=== PATIENT | male | born 1965 | race Caucasian/White ===

== ENCOUNTER 2016-10-09 09:54 | Emergency (ER) | payer MEDICARE, OTHER ==
--- NOTE | 2016-10-09 10:20 | Emergency Department Record ---
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 He had a revision September 04. He states it has taken longer to heal. He has more pain and tenderness than prior surgeries. He continues to have a small amount of clear-yellow drainage. No fevers. He feels shaky. No streaking. No pus. His surgery was in [place]. He saw his PCP for labs and antibiotics about a week ago. The patient started Keflex on 10/01 and had cultures and labs drawn on 10/05 in the ED. MD Complaint: Extremity swelling, Joint pain Onset/Timin -: Week(s) Location: Left, Other History of Same: No -: Yes Arthralgia Severity scale (1-10): 7 Quality: Aching, Other Consistency: Constant Improves with: Nothing Worsens with: Nothing Associated Symptoms: Denies other symptoms - Related Data Previous Rx's Medication Instructions Recorded Clindamycin HCl [Cleocin HCl] 300 mg PO QID #40 capsule 10/09/16 Allergies Allergy/AdvReac Type Severity Reaction Status Date / Time Sulfa (Sulfonamide Allergy RASH Verified 10/09/16 10:03 Antibiotics) Travel Screening - Travel/Exposure Within Last 30 Days Have you traveled within the last 30 days?: No - Travel/Exposure Within Last Year Have you traveled outside the [place] in the last year?: No - Additonal Travel Details Have you been exposed to anyone with a communicable illness?: No - Travel Symptoms Symptom Screening: None Review of Systems Constitutional: Reports: Chills. Denies: Fever, Malaise, Night sweats, Weakness Eyes: Denies: Eye discharge ENT: Denies: Congestion Respiratory: Denies: Cough, Dyspnea, Hemoptysis, Stridor, Wheezes Cardiovascular: Denies: Chest pain, Palpitations, Syncope Endocrine: Denies: Fatigue Gastrointestinal: Denies: Abdominal pain, Diarrhea, Nausea, Vomiting Genitourinary: Denies: Dysuria, Frequency, Hematuria Musculoskeletal: Reports: Arthralgia. Denies: Back pain, Myalgia Skin: Denies: Bruising, Change in color Neurological: Denies: Headache Psychiatric: Denies: Anxiety Hematological/Lymphatic: Denies: Blood Clots, Easy bleeding, Easy bruising, Swollen glands Past Medical History - SOCIAL HISTORY Smoking Status: Never smoker Alcohol Use: None Drug Use: None - RESPIRATORY Hx Respiratory Disorders: No - CARDIOVASCULAR Hx Cardio Disorders: Yes Hx Hypertension: Yes - NEURO Hx Neuro Disorders: Yes Hx Neuropathy: Yes - GI Hx GI Disorders: No - Hx Genitourinary Disorders: No - ENDOCRINE Hx Endocrine Disorders: No - MUSCULOSKELETAL Hx Musculoskeletal Disorders: No - PSYCH Hx Psych Problems: No - HEMATOLOGY/ONCOLOGY Hx Hematology/Oncology Disorders: No Family Medical History Any Significant Family History?: No Physical Exam - General General Appearance: Alert, Oriented x3, Cooperative, No acute distress Limitations: No limitations - Head Head exam: Normal inspection - Eye Eye exam: Normal appearance, PERRL. negative: Conjunctival injection, Periorbital swelling - ENT ENT exam: Normal exam Ear exam: Normal external inspection Nasal Exam: Normal inspection Mouth exam: Normal external inspection Teeth exam: Normal inspection Throat exam: Normal inspection - Neck Neck exam: Normal inspection - Respiratory Respiratory exam: Normal lung sounds bilaterally. negative: Respiratory distress - Cardiovascular Cardiovascular Exam: Regular rate, Normal rhythm, Normal heart sounds - Rectal Rectal exam: Deferred - exam: Deferred - Extremities Extremities exam: Full ROM, Other (The amputation site appears mildly erythematous diffusely at the end, incision site is intact, clear to yellow drainage on the guaze, tender diffusely across the end, no boggy, no pus). negative: Normal inspection, Pedal edema - Neurological Neurological exam: Alert, Oriented X3 - Psychiatric Psychiatric exam: Normal affect, Normal mood - Skin Skin exam: Erythema Course Vital Signs 10/09/16 09:59 Temperature 98.1 F Pulse Rate 100 H Respiratory 18 Rate Blood Pressure 134/87 Pulse Ox 96 - Reevaluation(s) Reevaluation #1: XR was read as post op changes no acute changes WBC 10 CRP 2.7 ESR 2 Results were discussed with the patient Will attempt to get ahold of his orthopedist in [place] 10/09/16 11:45 Message left No response by his orthopedist Will change to Clindamycin given the minor findings He is to call his orthopedist tomorrow Blood cultures no growth to date The findings are very mild The patient is in agreement and will call his doctor tomorrow 10/09/16 12:14 10/09/16 12:19 Reevaluation #2: The patient's orthopedist has not called back yet The patient will call in the morning to discuss his symptoms with the orthopedist His findings are mild. No sign of abscess or osteo. He was instructed to return if worse or any new concerns 10/09/16 18:18 Medical Decision Making - Lab Data Result diagrams: 10/09/16 10:30 10/09/16 10:30 Disposition Disposition: Discharge Clinical Impression: Cellulitis Disposition: Home, Self-Care Condition: (1) Good Instructions: Cellulitis (ED) Additional Instructions: Call your orthopedist tomorrow for close follow up Return to the ED if you have fever, swelling or spreading redness Start the clindamycin 4 times daily Prescriptions: Clindamycin HCl [Cleocin HCl] 300 mg PO QID #40 capsule Forms: Patient Portal Access
[2016-10-09 10:47] LABS: HEMATOCRIT 43.8 % (42.0-52.0); HEMOGLOBIN 15.5 gm/dl (14.0-18.0); MEAN CORPUSCULAR HEMOGLOBIN 31.1 pg (27-33); MEAN CORPUSCULAR HGB CONC 35.4 g/dl (32-36); MEAN PLATELET VOLUME 9.5 fl (7.4-10.4); PLATELET COUNT 297 K/uL (130-400); RED BLOOD COUNT 4.98 M/uL (4.40-5.70); RED CELL DISTRIBUTION WIDTH 13.3 % (11.5-14.5)
[2016-10-09 11:00] LABS: ANION GAP 9.1 (7-16); BLOOD UREA NITROGEN 12 mg/dL (9-20); C-REACTIVE PROTEIN 2.7 mg/dL (0.0-0.9); CARBON DIOXIDE 25.9 mmol/L (22-30); CREATININE 0.9 mg/dL (0.66-1.25); EST GLOMERULAR FILTRATION RATE > 60 ml/min; GLUCOSE,RANDOM 118 mg/dL (70-110)
[2016-10-09 11:03] LABS: PLATELET ESTIMATE NORMAL (NORMAL)
[2016-10-09 11:20] LABS: ERYTHROCYTE SEDIMENTATION RATE 2 mm/hr (0-15)
[2016-10-09] MEDS: CLINDAMYCIN 600MG/50ML PREMIX 600 MG in DEXTROSE 1 BAG IV ONE (12:23)
--- NOTE | 2016-10-12 15:08 | RADIOLOGY REPORT ---
DATE: 10/09/2016. EXAM: LEFT KNEE. HISTORY: Surgery four weeks ago. Distal stump pain increased since surgery. TECHNIQUE: Three views of the left knee were obtained. COMPARISON: None. ENCOUNTER: Initial. FINDINGS: There has been a left [id number] amputation. There is an intramedullary judy seen in the distal femur partially included on this examination. Abandoned screw holes are seen in the proximal tibia. No fracture or acute osseus abnormality identified. No radiopaque foreign body is seen. Surgical clips are present. IMPRESSION: 1. NO FRACTURE OR DESTRUCTIVE PROCESS IDENTIFIED. 2. POSTSURGICAL CHANGES ABOVE. JOB NUMBER: [id number] MTDD
== END 2016-10-09 12:55 | disposition home or self-care (01) ==
LOC: ER 09:54
DX: L03.116 Cellulitis of left lower limb (principal); Y83.5 Amputation of limb(s) as the cause of abnormal reaction of the patient, or of later complication, without mention of misadventure at the time of the procedure
CPT/HCPCS: 80048; 85027; 85651; 86140; 96365; 99284

== ENCOUNTER 2016-10-23 09:03 | Emergency (ER) | payer MEDICARE ==
--- NOTE | 2016-10-23 09:15 | Emergency Department Record ---
History of Present Illness - General Chief Complaint: Fall Injury Stated Complaint: FELL - SHOULDER AND HEADACH 2 DAYS AGO Time Seen by Provider: 10/23/16 09:14 Source: Patient Mode of Arrival: Ambulatory Limitations: No limitations - History of Present Illness Initial Comments: The patient is here due to a 2 day hx of a MAY and L shoulder pain since a fall down a flight of stairs 2 days ago. He denies any neck pain, nausea, vomiting, or confusion but states he does feel forgetful at times. There is no reported AP , back pain or visual changes. MD Complaint: Fall Onset/Timin -: Days(s) Fall From: Down stairs (#) When Fall Occurred: # Days [employer] Fall Witnessed: No Place Fall Occurred: Home Loss of Consciousness: Yes, Unsure Prolonged Down Time?: No Symptoms Prior to Fall: None Location: Head, Other Severity: Moderate Severity scale (1-10): 6 Quality: Aching Context: Other Associated Symptoms: Denies - [place] Coma Scale Eye Response: (4) Open spontaneously Motor Response: (6) Obeys commands Verbal Response: (5) Oriented [place] Total: 15 - Related Data Allergies Allergy/AdvReac Type Severity Reaction Status Date / Time sulfamethoxazole Allergy Intermediate Rash Verified 10/23/16 09:07 [From Bactrim] trimethoprim [From Bactrim] Allergy Intermediate Rash Verified 10/23/16 09:07 Sulfa (Sulfonamide Allergy RASH Verified 10/23/16 09:07 Antibiotics) Travel Screening - Travel/Exposure Within Last 30 Days Have you traveled within the last 30 days?: No - Travel/Exposure Within Last Year Have you traveled outside the [place] in the last year?: No - Additonal Travel Details Have you been exposed to anyone with a communicable illness?: No - Travel Symptoms Symptom Screening: None Review of Systems Constitutional: Denies: Chills, Fever Eyes: Denies: Eye discharge ENT: Denies: Congestion Respiratory: Denies: Cough, Dyspnea Past Medical History - SOCIAL HISTORY Smoking Status: Never smoker Alcohol Use: None Drug Use: None - RESPIRATORY Hx Respiratory Disorders: No - CARDIOVASCULAR Hx Cardio Disorders: Yes Hx Hypertension: Yes - NEURO Hx Neuro Disorders: Yes Hx Neuropathy: Yes - GI Hx GI Disorders: No - Hx Genitourinary Disorders: No - ENDOCRINE Hx Endocrine Disorders: No - MUSCULOSKELETAL Hx Musculoskeletal Disorders: No - PSYCH Hx Psych Problems: No - HEMATOLOGY/ONCOLOGY Hx Hematology/Oncology Disorders: No Family Medical History Any Significant Family History?: No Physical Exam - General General Appearance: Alert, Oriented x3, Cooperative, No acute distress - Head Head exam: Atraumatic, Normocephalic, Normal inspection - Eye Eye exam: Normal appearance, PERRL - ENT ENT exam: Normal exam, Mucous membranes moist, Normal external ear exam, Normal orophraynx, TM's normal bilaterally Throat exam: Normal inspection. negative: Tonsillar erythema, Tonsillar exudate - Neck Neck exam: Normal inspection, Full ROM. negative: Tenderness (There is no Cspine tenderness and there is full ROM with no pain.) - Respiratory Respiratory exam: Normal lung sounds bilaterally. negative: Respiratory distress - Cardiovascular Cardiovascular Exam: Regular rate, Normal rhythm, Normal heart sounds - Neurological Neurological exam: Alert, Normal gait (Normal for the patient using crutches due to a L BKA.), Oriented X3, Other (The patient is answering all questions appropriately.). negative: Abnormal gait, Altered, Motor sensory deficit Course Vital Signs 10/23/16 09:06 Temperature 98.2 F Pulse Rate 94 H Respiratory 20 Rate Blood Pressure 119/66 Pulse Ox 95 - Reevaluation(s) Reevaluation #1: The patient is doing well. He is presently texting on his phone with no difficulty. 10/23/16 10:21 Reevaluation #2: The patient is doing well. I did explain the test results to him and did recommend he see his PCP and cut back on his pain medicines. 10/23/16 10:30 Medical Decision Making - Data Complexity MDM Data: X-Ray Ordered and/or Reviewed - Radiology Data Radiology results: Report reviewed (L Shoulder: No acute changes. Head CT: No acute changes.) Disposition Disposition: Discharge Clinical Impression: Head injury Qualifiers: Encounter type: initial encounter Qualified Code(s): S09.90XA - Unspecified injury of head, initial encounter Disposition: Home, Self-Care Condition: (1) Good Instructions: Minor Head Injury (ED) Additional Instructions: Please see your PCP for recheck later this week or next week for recheck. Return to the ER for any problems or new issues. Forms: Patient Portal Access Time of Disposition: 10:27
[2016-10-23 09:51] LABS: AMPHETAMINE SCREEN URINE NOT DETECTED; BARBITURATE SCREEN URINE NOT DETECTED; BENZODIAZEPINE SCREEN URINE DETECTED; COCAINE SCREEN URINE NOT DETECTED; METHADONE SCREEN URINE NOT DETECTED; METHAMPHETAMINE SCREEN NOT DETECTED; OPIATE SCREEN URINE DETECTED; OXYCODONE SCREEN URINE NOT DETECTED; PHENCYCLIDINE SCREEN URINE NOT DETECTED; PROPOXYPHENE SCREEN URINE NOT DETECTED; THC SCREEN URINE DETECTED; TRICYCLIC ANTIDEPRESSANT SCRN NOT DETECTED
--- NOTE | 2016-10-26 10:02 | RADIOLOGY REPORT ---
EXAM: LEFT SHOULDER HISTORY: PATIENT FELL TWO DAYS AGO, DIFFICULTY IN LIFTING LEFT ARM WITH LIMITED RANGE OF MOTION. TECHNIQUE: Four views of the left shoulder were obtained. Comparison: No prior left shoulder series. Encounter: Initial. FINDINGS: Minor spurring is seen at the acromioclavicular joint and there is also some mild degenerative change at the glenohumeral joint. No definite acute fracture or dislocation at the left shoulder evident. There is some minor deformity along the superior aspect of the humeral head on the final AP view obtained which may be due to old injury, but does not appear acute. If shoulder symptoms persist, follow-up MRI of the left shoulder would be suggested for further evaluation if not contraindicated. IMPRESSION: 1. MILD DEGENERATIVE CHANGE OF THE LEFT SHOULDER. 2. MILD DEFORMITY OF THE SUPERIOR ASPECT OF THE HUMERAL HEAD MAY BE DUE TO OLD INJURY, BUT DOES NOT APPEAR ACUTE. 3. NO DEFINITE ACUTE FRACTURE OR DISLOCATION OF THE LEFT SHOULDER IDENTIFIED. JOB NUMBER: [id number] MTDD
--- NOTE | 2016-10-26 10:04 | CT SCAN REPORT ---
EXAM: HEAD CT HISTORY: PATIENT FELL TWO DAYS AGO, HAS BEEN CONFUSED. TECHNIQUE: Axial CT scan of the head was performed without IV contrast. Comparison: None. Encounter: Initial. FINDINGS: No definite acute intracranial hemorrhage identified. No focal mass effect or midline shift apparent. No definite acute infarct or intracranial mass lesion is seen. No depressed calvarial fracture is evident. IMPRESSION: EMERGENCY NONCONTRAST HEAD CT APPEARS NEGATIVE WITH NO DEFINITE ACUTE INTRACRANIAL HEMORRHAGE OR FOCAL MASS EFFECT IDENTIFIED. JOB NUMBER: [id number] [facility]
== END 2016-10-23 10:30 | disposition home or self-care (01) ==
LOC: ER 09:03
DX: S09.90XA Unspecified injury of head, initial encounter (principal); R51 Headache; M25.512 Pain in left shoulder; R41.0 Disorientation, unspecified; I10 Essential (primary) hypertension; Z79.899 Other long term (current) drug therapy; W10.8XXA Fall (on) (from) other stairs and steps, initial encounter; Y92.009 Unspecified place in unspecified non-institutional (private) residence as the place of occurrence of the external cause
CPT/HCPCS: 99283; 99284; 73030; 70450; G0477